=== PATIENT | female | born 1960 | race Caucasian/White ===

== ENCOUNTER 2020-05-04 17:34 | Emergency (ER) | payer MEDICARE, MEDICAID ==
[~2020-05-04] VITALS: Ht 160 cm; Wt 84.1 kg
[2020-05-04] MEDS ORDERED: KETOROLAC TROMETHAMINE 30 MG/ML VIAL IVP ONE (19:00)
[2020-05-04] MEDS ORDERED: ONDANSETRON HCL 4 MG/2 ML VIAL IVP ONE (19:00)
[2020-05-04] MEDS ORDERED: FentaNYL CITRATE PF 100 MCG/2 ML VIAL IVP ONE (19:30)
[2020-05-04] MEDS ORDERED: ONDANSETRON HCL 4 MG/2 ML VIAL IM ONE (20:30)
[2020-05-04] MEDS ORDERED: FentaNYL CITRATE PF 100 MCG/2 ML VIAL IM ONE (20:30)
[2020-05-04 20:45] VITALS: BP 126/80
== END 2020-05-04 20:55 | disposition home or self-care (01) ==
LOC: EMS 17:34
DX: R10.11 Right upper quadrant pain (principal)
CPT/HCPCS: 71045; 76700; 93005; 96372; 99285; J2405; J3010

== ENCOUNTER 2020-08-27 14:39 | Emergency (ER) | payer MEDICARE, MEDICAID ==
[~2020-08-27] VITALS: Ht 165.1 cm; Wt 76.8 kg
[2020-08-27 14:44] VITALS: BP 104/74
[2020-08-27] MEDS ORDERED: KETOROLAC TROMETHAMINE 30 MG/ML VIAL IM ONE (16:15)
[2020-08-27] MEDS ORDERED: BACITRACIN 0.9 GM PACKET OINTMENT TP ONE (16:15)
== END 2020-08-27 17:04 | disposition home or self-care (01) ==
LOC: EMS 14:42
DX: S91.101D Unspecified open wound of right great toe without damage to nail, subsequent encounter (principal); G89.18 Other acute postprocedural pain; M79.674 Pain in right toe(s); F32.9 Major depressive disorder, single episode, unspecified; E11.9 Type 2 diabetes mellitus without complications; F20.9 Schizophrenia, unspecified; Z86.73 Personal history of transient ischemic attack (TIA), and cerebral infarction without residual deficits; Z88.6 Allergy status to analgesic agent; Z88.5 Allergy status to narcotic agent; Z88.8 Allergy status to other drugs, medicaments and biological substances; X58.XXXD Exposure to other specified factors, subsequent encounter
CPT/HCPCS: 96372; 99283; J1885

== ENCOUNTER 2021-01-02 21:56 | Emergency (ER) | payer MEDICARE, MEDICAID ==
[~2021-01-02] VITALS: Ht 165.1 cm; Wt 75.0 kg
[2021-01-02 22:04] VITALS: BP 114/73
[2021-01-02] MEDS ORDERED: HYDROCODONE/ACETAMINOPHEN 5-325 MG TABLET PO ONE (23:45)
== END 2021-01-03 00:49 | disposition left against medical advice (07) ==
LOC: EMS 22:02
DX: M79.671 Pain in right foot (principal); E11.9 Type 2 diabetes mellitus without complications; F32.9 Major depressive disorder, single episode, unspecified; F20.9 Schizophrenia, unspecified; Z88.6 Allergy status to analgesic agent; Z88.1 Allergy status to other antibiotic agents; Z88.5 Allergy status to narcotic agent; Z88.8 Allergy status to other drugs, medicaments and biological substances
CPT/HCPCS: 99283

== ENCOUNTER 2022-05-26 16:52 | Emergency (ER) | payer MEDICARE, MEDICAID ==
[~2022-05-26] VITALS: Ht 165.1 cm; Wt 75.0 kg
[2022-05-26] MEDS ORDERED: TRAZ-186 PO (19:00)
[2022-05-26] MEDS ORDERED: DIPH50CA35 PO (19:00)
[2022-05-26] MEDS ORDERED: QUET200T PO (19:00)
[2022-05-26] MEDS ORDERED: SODIUM CHLORIDE 0.9% 1,000 ML IV ONE (20:00)
[2022-05-26 21:26] VITALS: BP 110/82
== END 2022-05-26 20:30 | disposition left against medical advice (07) ==
LOC: EMS 16:54
DX: R55 Syncope and collapse (principal); F32.A Depression, unspecified; E11.9 Type 2 diabetes mellitus without complications; F20.9 Schizophrenia, unspecified; Z98.890 Other specified postprocedural states; Z88.6 Allergy status to analgesic agent; Z88.8 Allergy status to other drugs, medicaments and biological substances
CPT/HCPCS: 71045; 93005; 99283; 36415-L1; 36415-TC